=== PATIENT | male | born 1975 | race Caucasian/White ===

== ENCOUNTER 2022-01-22 11:49 | Emergency (ER) | payer OTHER ==
[~2022-01-22] VITALS: Ht 175 cm; Wt 95.0 kg
[2022-01-22 12:05] VITALS: BP 164/94
--- NOTE | 2022-01-22 12:32 | ED Back Pain ---
General Chief Complaint: Back Problems Stated Complaint: TESTICULAR PAIN Nursing Triage Note: Patient has presented to ER with cc of lower back back pain. He reports that 4 weeks ago he was cutting wood and was having back pain. About a week later he received a steriod shot it helped but the last 2 weeks the pain has gotten worse. The last 3 days the pain has increased to the point the he has has pain on his lower abdomen and now has pain and swelling in his left testicle. He did go to urgent care this morning, he had an ultra sound and told the ultra sound was OK. He was taking alleve for the pain but he has not had any pain medication today. Source of Information: Patient Exam Limitations: No Limitations History of Present Illness Date Seen by Provider: Jan 22, 2022 Time Seen by Provider: 11:53 Initial Comments 46yoM with PMH coming in due to left testicular pain. It is a constant throbbing pain. He went to the urgent care and he had an ultrasound done already to rule out torsion. The pain does radiate up through groin through flank. No n/v, CP, SOB, fever/chills. Has never had this before. Allergies and Home Medications Allergies Coded Allergies: No Known Drug Allergies (Unverified , 01/22/22) Patient Home Medication List Home Medication List Reviewed: Yes Review of Systems Constitutional: No chills, No fever EENTM: No blurred vision Respiratory: No cough Cardiovascular: No chest pain Gastrointestinal: No abdominal pain Genitourinary: other (testicular pain) Musculoskeletal: no symptoms reported Skin: no symptoms reported Psychiatric/Neurological: No Symptoms Reported All Other Systems Reviewed Negative Unless Noted: Yes Past Qlajchp-Hxdcyn-Mzbkdj Hx Patient Social History Tobacco Use?: No Substance use?: No Alcohol Use?: Yes Past Medical History Surgeries: No Physical Exam Vital Signs Vital Signs - First Documented 01/22/22 12:05 Temp 36.4 Pulse 83 Resp 16 B/P (MAP) 164/94 (117) Pulse Ox 100 Capillary Refill : Height, Weight, BMI Height: '" Weight: lbs. oz. kg; 31.00 BMI Method: General Appearance: No Apparent Distress, WD/WN HEENT: PERRL/EOMI, Normal ENT Inspection, Pharynx Normal Neck: Full Range of Motion, Normal Inspection, Non Tender, Supple Cardiovascular: Regular Rate, Rhythm, No Edema, Normal Peripheral Pulses Respiratory: Chest Non Tender, Lungs Clear, Normal Breath Sounds, No Accessory Muscle Use, No Respiratory Distress Gastrointestinal: Normal Bowel Sounds, Non Tender, Soft; No Distended, No Guarding Genital/Rectal: Other (tender on L testicle without swelling, intact cremast jeremy reflex) Back: Normal Inspection, No CVA Tenderness, No Vertebral Tenderness Extremity: Normal Capillary Refill, Normal Inspection, Normal Range of Motion, Non Tender, No Calf Tenderness, No Pedal Edema Neurologic/Psychiatric: Alert, No Motor/Sensory Deficits, Normal Mood/Affect Skin: Normal Color, Warm/Dry Lymphatic: No Adenopathy Progress/Results/Core Measures Results/Orders Lab Results Laboratory Tests Test 01/22/22 12:00 Range/Units Urine Color PALE YELLOW Urine Clarity CLEAR Urine pH 6.0 5-9 Urine Specific [place] 1.010 L 1.016-1.022 Urine Protein NEGATIVE NEGATIVE Urine Glucose (UA) NEGATIVE NEGATIVE Urine Ketones NEGATIVE NEGATIVE Urine Nitrite NEGATIVE NEGATIVE Urine Bilirubin NEGATIVE NEGATIVE Urine Urobilinogen 0.2 < = 1.0 MG/DL Urine Leukocyte Esterase NEGATIVE NEGATIVE Urine RBC (Auto) NEGATIVE NEGATIVE Urine RBC NONE /HPF Urine WBC RARE /HPF Urine Squamous Epithelial Cells 0-2 /HPF Urine Crystals NONE /LPF Urine Bacteria NEGATIVE /HPF Urine Casts NONE /LPF Urine Mucus NEGATIVE /LPF Urine Culture Indicated NO My Orders Orders - ALEKSANDR REYNAGA MD Ua Culture If Indicated (01/22/22 12:36) Ct Abdomen/Pelvis Wo (01/22/22 12:36) Ketorolac Injection (Toradol Injection) (01/22/22 12:45) Ondansetron Oral Dissolve Tab (Zofran (01/22/22 12:37) Medications Given in ED Current Medications Medications Dose Ordered Sig/Sharan Route Start Time Stop Time Status Last Admin Dose Admin Ketorolac Tromethamine 15 mg ONCE ONCE IM 01/22/22 12:45 01/22/22 12:46 DC 01/22/22 12:57 15 MG Vital Signs/I&O 01/22/22 12:05 Temp 36.4 Pulse 83 Resp 16 B/P (MAP) 164/94 (117) Pulse Ox 100 Blood Pressure Mean: 117 Progress Progress Note : Progress Note 46-year-old male with above history coming in due to testicular pain. ABCs were intact and vitals were stable on presentation. Physical exam with a normal- appearing testicle that is tender on palpation, no swelling, normal mesenteric reflex, normal skin overlying the testicle. He had an ultrasound done today which was normal and no torsion. CT abdomen pelvis ordered to assess for kidney stone versus other abnormalities, and he does have nonobstructing renal calculi, but no obstruction at this time. It is always possible he passed a stone earlier versus epididymitis versus some other etiology. I can treat him with a course of doxycycline in case he has a subclinical case of epididymitis. He s wears he is monogamous with his who also says the same, so I believe an STI is unlikely. I believe he is stable for discharge with outpatient follow-up. He was sent home with strict return precautions Diagnostic Imaging Diagonstic Imaging: CT (abd/pelvis) Comments [facility] [place], [place] NAME: CASTILLO TERRELL [facility] REC#: [id number] PT STATUS: REG ER : 1975 PHYSICIAN: ALEKSANDR REYNAGA MD ADMIT DATE: 01/22/22/ER FS Draft Date of Exam:01/22/22 CT ABDOMEN/PELVIS WO PROCEDURE: CT abdomen and pelvis without contrast. TECHNIQUE: Multiple contiguous axial images were obtained through the abdomen and pelvis without the use of intravenous contrast. Auto Exposure Controls were utilized during the CT exam to meet ALARA standards for radiation dose reduction. INDICATION: Left flank and scrotal pain. No priors. A 3 mm nonobstructing stone is within the left lower pole renal calyx, punctate 1 mm right renal calculus nonobstructing, no radiopaque ureteral or bladder stone and there is no hydroureteronephrosis. There is no perinephric or periureteric edema or stranding. Liver, gallbladder, bile ducts, spleen, adrenals, pancreas all unremarkable. The aorta is nonaneurysmal. The air-containing appendix normal. There is no diverticulitis. No ascites, abscess, hematoma or acute fluid collection. Prostate, seminal vesicles and urinary bladder unremarkable. Postoperative the right hip is replaced, there is bilateral chronic L5 spondylolysis defects without significant slip, no acute-appearing bony abnormality. IMPRESSION: 1. Nonobstructing bilateral renal calculi, no hydroureteronephrosis or ureteral/bladder stone. 2. Normal appendix. No diverticulitis. No bowel, biliary or urinary tract obstruction. No acute-appearing abnormality. Dictated on workstation # [id number] Dict: 01/22/22 1258 Trans: 01/22/22 1304 CV [id number] Interpreted by: JO ANN RILEY Electronically signed by: Departure Impression Primary Impression: Testicular pain, left Disposition: 01 HOME, SELF-CARE Condition: Stable Departure-Patient Inst. Decision time for Depature: 13:26 Referrals: NO,LOCAL PHYSICIAN (PCP/Family) Primary Care Physician Patient Instructions: Epididymitis (DC) Add. Discharge Instructions: Take the Toradol every 6 hours as needed for the next 3 days for pain. If you have pain on top of this then you can take the hydrocodone. You can try icing it as well and wearing something that help support your scrotum such as a jock or tighter fitting underwear to see if that helps. Follow-up with your regular doctor if things are not improving, they could always refer you to a urologist who is a specialist if things are not getting better. Scripts Doxycycline Hyclate (Doxycycline Hyclate) 100 Mg Tablet 100 MG PO BID for 7 Days, #14 TAB 0 Refills Prov: ALEKSANDR REYNAGA MD 01/22/22 Hydrocodone Bit/Acetaminophen (HYDROcodone/APAP 5 MG/325 MG TAB) 1 Tab Tab 1 TAB PO Q6H PRN for PAIN-SEVERE (8-10) for 3 Days, #12 TAB 0 Refills Prov: ALEKSANDR REYNAGA MD 01/22/22 Ketorolac Tromethamine (Ketorolac Tromethamine) 10 Mg Tablet 10 MG PO Q6H PRN for PAIN-MODERATE (5-7) for 3 Days, #12 TAB Prov: ALEKSANDR REYNAGA MD 01/22/22 ALEKSANDR REYNAGA MD Jan 22, 2022 12:32
[2022-01-22] MEDS ORDERED: ONDANSETRON 4 MG (ZOFRAN) ORAL DISSOLVE TAB PO STA (12:37)
[2022-01-22 12:41] LABS: BILIRUBIN,URINE NEGATIVE (NEGATIVE); CLARITY,URINE CLEAR; GLUCOSE, URINE (UA) NEGATIVE (NEGATIVE); KETONES,URINE NEGATIVE (NEGATIVE); LEUKOCYTE ESTERASE ,URINE NEGATIVE (NEGATIVE); NITRITE,URINE NEGATIVE (NEGATIVE); PROTEIN,URINE NEGATIVE (NEGATIVE)
[2022-01-22] MEDS ORDERED: KETOROLAC 30 MG/ML VIAL IM ONE (12:45)
--- NOTE | 2022-01-22 13:04 | Diagnostic Imaging Report ---
PROCEDURE: CT abdomen and pelvis without contrast. TECHNIQUE: Multiple contiguous axial images were obtained through the abdomen and pelvis without the use of intravenous contrast. Auto Exposure Controls were utilized during the CT exam to meet ALARA standards for radiation dose reduction. INDICATION: Left flank and scrotal pain. No priors. A 3 mm nonobstructing stone is within the left lower pole renal calyx, punctate 1 mm right renal calculus nonobstructing, no radiopaque ureteral or bladder stone and there is no hydroureteronephrosis. There is no perinephric or periureteric edema or stranding. Liver, gallbladder, bile ducts, spleen, adrenals, pancreas all unremarkable. The aorta is nonaneurysmal. The air-containing appendix normal. There is no diverticulitis. No ascites, abscess, hematoma or acute fluid collection. Prostate, seminal vesicles and urinary bladder unremarkable. Postoperative the right hip is replaced, there is bilateral chronic L5 spondylolysis defects without significant slip, no acute-appearing bony abnormality. IMPRESSION: 1. Nonobstructing bilateral renal calculi, no hydroureteronephrosis or ureteral/bladder stone. 2. Normal appendix. No diverticulitis. No bowel, biliary or urinary tract obstruction. No acute-appearing abnormality. Dictated by: Dictated on workstation # [id number]
[2022-01-22 13:15] LABS: BACTERIA,URINE NEGATIVE /HPF; COLOR,URINE PALE YELLOW; SQUAMOUS EPITHELIAL CELL,UR 0-2 /HPF; WBC,URINE RARE /HPF
[2022-01-22] MEDS ORDERED: ACHD5005 PO (13:28)
[2022-01-22] MEDS ORDERED: KETO10TA PO (13:28)
[2022-01-22] MEDS ORDERED: DOXY100T2 PO (13:28)
== END 2022-01-22 13:30 | disposition home or self-care (01) ==
LOC: ER FS 11:52
DX: N50.812 Left testicular pain (principal)
CPT/HCPCS: 74176; 81000